=== PATIENT | male | born 1985 | race Two or more races ===

== ENCOUNTER 2021-05-11 13:22 | Emergency (ER) | payer SELFPAY ==
[2021-05-11] MEDS ORDERED: Sodium Chloride 0.9% 10 ML Syringe FLUSH PRN (13:32)
[2021-05-11] MEDS ORDERED: Ondansetron 4 MG/2 ML SDV IVPUSH ONE ×2 (13:33→15:09)
[2021-05-11] MEDS ORDERED: Sodium Chloride 0.9% 1,000 ML IV ONE ×2 (13:33→15:19)
--- NOTE | 2021-05-11 13:33 | EDM.PDOC ---
ED HPI GENERAL MEDICAL PROBLEM - General Chief Complaint: General Stated Complaint: THROWING UP BLOOD Time Seen by Provider: 05/11/21 13:30 Source of Information: Reports: Patient History Limitations: Reports: No Limitations, Language Barrier (patient is from [facility] but does speak lux[place]ish ) - History of Present Illness INITIAL COMMENTS - FREE TEXT/NARRATIVE: Patient comes in the emergency department with complaints of vomiting up blood. Patient does have a history of esophageal varices with surgical intervention in his home country of [facility]. He has not had any medical issues while he is been in [place]. Patient states that he has had 2 surgeries in the past regarding it. He states that it is caused by heavy drinking. Patient still states that he does drink on occasion he drinks about 6 drinks a week. Patient states that he did drink approximately 24 hours ago. Patient states that he started vomiting approximately 12 hours ago. Patient states that he does have black tarry stools along with bright red kal blood when vomiting. He states that he has had greater than 4 episodes of vomiting this morning.Denies any chest pain, shortness of breath, peripheral edema. He states that he is dizzy, lightheaded. He does also have a history of liver cirrhosis and is not currently on any treatment here in [place]. Onset: Sudden Location: Reports: Abdomen Quality: Reports: Throbbing Improves with: Reports: None Worsens with: Reports: None Context: Reports: Other Associated Symptoms: Reports: Other - Related Data Allergies Allergy/AdvReac Type Severity Reaction Status Date / Time No Known Allergies Allergy Verified 05/11/21 15:15 ED ROS GENERAL - Review of Systems Review Of Systems: Comprehensive ROS is negative, except as noted in HPI. Constitutional: Reports: Malaise, Weakness, Fatigue HEENT: Reports: No Symptoms Respiratory: Reports: No Symptoms Cardiovascular: Reports: No Symptoms Endocrine: Reports: No Symptoms GI/Abdominal: Reports: Anorexia, Black Stool, Nausea, Vomiting : Reports: No Symptoms Musculoskeletal: Reports: No Symptoms Skin: Reports: Jaundice, Diaphoresis Neurological: Reports: Dizziness Psychiatric: Reports: No Symptoms Hematologic/Lymphatic: Reports: No Symptoms Immunologic: Reports: No Symptoms ED EXAM, GENERAL - Physical Exam Exam: See Below Exam Limited By: No Limitations General Appearance: Alert, WD/WN, Mild Distress Eye Exam: Bilateral Eye: PERRL, Other (Jaundice appearance sclera ) Head: Atraumatic, Normocephalic Neck: Normal Inspection, Supple, Non-Tender, Full Range of Motion Respiratory/Chest: No Respiratory Distress, Lungs Clear, Normal Breath Sounds, No Accessory Muscle Use, Chest Non-Tender Cardiovascular: Normal Peripheral Pulses, Regular Rate, Rhythm, Tachycardia GI/Abdominal: Normal Bowel Sounds, Soft, Non-Tender Back Exam: Normal Inspection, Full Range of Motion Extremities: Normal Inspection, Normal Range of Motion, Non-Tender Neurological: Alert, Oriented, CN II-XII Intact, Normal Cognition, Normal Gait Psychiatric: Normal Affect, Normal Mood Skin Exam: Jaundice, Pallor Course - Orders/Labs/Meds Orders: Active Orders 24 hr Category Date Time Status Chest wo Cont [CT] Stat Exams 05/11/21 13:37 Ordered Sodium Chloride 0.9% [Normal Saline] 1,000 ml Med 05/11/21 15:19 Ordered IV ONETIME Sodium Chloride 0.9% [Saline Flush] Med 05/11/21 13:32 Active 10 ml FLUSH ASDIRECTED PRN Peripheral IV Insertion Adult [OM.PC] Stat Oth 05/11/21 13:32 Ordered Medication Orders Sodium Chloride (Normal Saline) 1,000 mls @ 1,000 mls/hr IV ONETIME ONE Stop: 05/11/21 16:18 Sodium Chloride (Sodium Chloride 0.9% 10 Ml Syringe) 10 ml FLUSH ASDIRECTED PRN PRN Reason: Keep Vein Open Labs: Laboratory Tests 05/11/21 05/11/21 05/11/21 Range/Units 13:35 13:35 13:35 WBC 8.8 (4.0-10.0) x10^3/uL RBC 3.98 L (4.5-6.0) x10^6/uL Hgb 10.6 L (14.0-18.0) g/dL Hct 31.2 L (40.0-52.0) % MCV 78.4 (78.0-93.0) fL MCH 26.6 (26.0-32.0) pg MCHC 34.0 (32.0-36.0) g/dL RDW Coeff of Monika 17.0 H (10.0-15.0) % Plt Count 138 (130-400) x10^3/uL Neut % (Auto) 72.2 (50.0-80.0) % Lymph % (Auto) 16.8 L (25.0-50.0) % [place] % (Auto) 10.0 (2.0-11.0) % Eos % (Auto) 0.8 (0.0-4.0) % Baso % (Auto) 0.2 (0.2-1.2) % PT (9.9-12.5) SEC INR (2.0-3.5) Sodium 138 (136-145) mmol/L Potassium 4.3 (3.5-5.1) mmol/L Chloride 105 (98-107) mmol/L Carbon Dioxide 25 (21-32) mmol/L Anion Gap 12.3 (5-15) mmol/L BUN 35 H (7-18) mg/dL Creatinine 1.0 (0.70-1.30) mg/dL Est Cr Clr Drug Dosing TNP Estimated GFR (MDRD) > 60 Glucose 115 H (70-99) mg/dL Calcium 8.5 (8.5-10.1) mg/dL Corrected Calcium 8.8 (8.5-10.1) mg/dL Total Bilirubin 3.2 H (0.2-1.0) mg/dL AST 17 (15-37) U/L ALT 16 (16-63) U/L Alkaline Phosphatase 53 (46-116) U/L Troponin I High Sens < 4 (<=76) ng/L Total Protein 6.9 (6.4-8.2) g/dL Albumin 3.6 (3.4-5.0) g/dL Globulin 3.3 Albumin/Globulin Ratio 1.09 Amylase 15 L (25-115) U/L Lipase 61 L (73-393) U/L Blood Type O NEGATIVE Gel Antibody Screen Negative 05/11/21 Range/Units 13:45 WBC (4.0-10.0) x10^3/uL RBC (4.5-6.0) x10^6/uL Hgb (14.0-18.0) g/dL Hct (40.0-52.0) % MCV (78.0-93.0) fL MCH (26.0-32.0) pg MCHC (32.0-36.0) g/dL RDW Coeff of Monika (10.0-15.0) % Plt Count (130-400) x10^3/uL Neut % (Auto) (50.0-80.0) % Lymph % (Auto) (25.0-50.0) % [place] % (Auto) (2.0-11.0) % Eos % (Auto) (0.0-4.0) % Baso % (Auto) (0.2-1.2) % PT 12.5 (9.9-12.5) SEC INR 1.1 L (2.0-3.5) Sodium (136-145) mmol/L Potassium (3.5-5.1) mmol/L Chloride (98-107) mmol/L Carbon Dioxide (21-32) mmol/L Anion Gap (5-15) mmol/L BUN (7-18) mg/dL Creatinine (0.70-1.30) mg/dL Est Cr Clr Drug Dosing Estimated GFR (MDRD) Glucose (70-99) mg/dL Calcium (8.5-10.1) mg/dL Corrected Calcium (8.5-10.1) mg/dL Total Bilirubin (0.2-1.0) mg/dL AST (15-37) U/L ALT (16-63) U/L Alkaline Phosphatase (46-116) U/L Troponin I High Sens (<=76) ng/L Total Protein (6.4-8.2) g/dL Albumin (3.4-5.0) g/dL Globulin Albumin/Globulin Ratio Amylase (25-115) U/L Lipase (73-393) U/L Blood Type Gel Antibody Screen Meds: Medications Generic Name Dose Route Start Last Admin Trade Name Freq PRN Reason Stop Dose Admin Sodium Chloride 1,000 mls @ 1,000 mls/hr 05/11/21 15:19 Normal Saline IV 05/11/21 16:18 ONETIME ONE Sodium Chloride 10 ml 05/11/21 13:32 Sodium Chloride 0.9% 10 Ml Syringe FLUSH ASDIRECTED PRN Keep Vein Open Discontinued Medications Generic Name Dose Route Start Last Admin Trade Name Freq PRN Reason Stop Dose Admin Ceftriaxone Sodium 1 gm 05/11/21 15:23 Ceftriaxone 1 Gm Vial IVPUSH 05/11/21 15:24 ONETIME ONE Sodium Chloride 1,000 mls @ 1,000 mls/hr 05/11/21 13:33 Normal Saline IV 05/11/21 14:32 ONETIME ONE Ondansetron HCl 4 mg 05/11/21 13:33 Ondansetron 4 Mg/2 Ml Sdv IVPUSH 05/11/21 13:34 ONETIME ONE Ondansetron HCl 4 mg 05/11/21 15:09 Ondansetron 4 Mg/2 Ml Sdv IVPUSH 05/11/21 15:10 ONETIME ONE Ondansetron HCl Confirm 05/11/21 15:22 05/11/21 15:15 Ondansetron 4 Mg/2 Ml Sdv Administered 05/11/21 15:23 Not Given Dose 4 mg .ROUTE .STK-MED ONE Pantoprazole Sodium 40 mg 05/11/21 13:44 Pantoprazole 40 Mg Vial IVPUSH 05/11/21 13:45 ONETIME ONE Departure - Departure Time of Disposition: 15:30 Disposition: DC/Tfer to [facility] 02 Condition: Good Clinical Impression: GI bleed Qualifiers: GI bleed type/associated pathology: unspecified gastrointestinal hemorrhage type Qualified Code(s): K92.2 - Gastrointestinal hemorrhage, unspecified - Discharge Information *PRESCRIPTION DRUG MONITORING PROGRAM REVIEWED*: Not Applicable *COPY OF PRESCRIPTION DRUG MONITORING REPORT IN PATIENT UBALDO: Not Applicable Forms: ED Department Discharge, Interfacility Transfer EMTALA - My Orders Last 24 Hours: My Active Orders 05/11/21 13:32 Sodium Chloride 0.9% [Saline Flush] 10 ml FLUSH ASDIRECTED PRN Peripheral IV Insertion Adult [OM.PC] Stat 05/11/21 13:37 Chest wo Cont [CT] Stat 05/11/21 15:19 Sodium Chloride 0.9% [Normal Saline] 1,000 ml IV ONETIME - Assessment/Plan Last 24 Hours: My Active Orders 05/11/21 13:32 Sodium Chloride 0.9% [Saline Flush] 10 ml FLUSH ASDIRECTED PRN Peripheral IV Insertion Adult [OM.PC] Stat 05/11/21 13:37 Chest wo Cont [CT] Stat 05/11/21 15:19 Sodium Chloride 0.9% [Normal Saline] 1,000 ml IV ONETIME Assessment:: 1. vomiting blood 2. GI bleed Plan: 1. Labs completed in the ER. Results reviewed with the patient 2. IV initiated in the emergency department 3. IV fluids provided 2 L fluid given in ER 4. Type and screen completed 5. Protonix 40mg IV given in ER 6. Rocephin 1gm IV given in ER 7. Zofran given in the ER to help with nausea 8. Patient and nursing staff was updated regarding the plan of care 9. Education provided the patient regarding activity, diet, rest, [id number] medication modalities, and follow-up care was provided 10. Patient and family are agreeable to the above plan of care 11. All questions and concerns were addressed with the patient and family prior to discharge
[2021-05-11] MEDS ORDERED: Pantoprazole 40 MG Vial IVPUSH ONE (13:44)
[2021-05-11 14:05] LABS: CHLORIDE,CL 105 mmol/L (98-107); SODIUM,NA 138 mmol/L (136-145)
[2021-05-11 14:26] LABS: ANION GAP 12.3 mmol/L (5-15)
--- NOTE | 2021-05-11 14:56 | CT ---
[id number] CT/CT Chest Abdomen Pelvis WO IV Exam: CT Chest Abdomen Pelvis WO IV Clinical Data: ACUTE BLOOD LOSS COMPARISON: NO PREVIOUS SIMILAR EXAM IS AVAILABLE FINDINGS: The lungs are clear. There is no mediastinal mass or adenopathy There is no mediastinal hemorrhage There is significant splenomegaly The liver, adrenals, aorta, pancreas, and kidneys show no acute abnormalities The pelvis shows no mass, adenopathy, or fluid collection The appendix is not seen IMPRESSION: SIGNIFICANT SPLENOMEGALY HEMATOLOGY CONSULTATION NEEDED CONTRAST CT ABDOMEN PELVIS NEEDED UNDERLYING MESENTERIC VENOUS VASCULAR PATHOLOGY SUSPECTED THERE ARE PREMATURE VENOUS VASCULAR CALCIFICATIONS VERSUS PHLEBOLITHS Alber Li MD 05/11/21 [id number] Thank you for allowing us to participate in the care of your patient.
[2021-05-11] MEDS ORDERED: Ondansetron 4 MG/2 ML SDV ONE (15:22)
[2021-05-11] MEDS ORDERED: cefTRIAXone 1 GM Vial IVPUSH ONE (15:23)
== END 2021-05-11 16:20 | disposition short-term general hospital (02) ==
LOC: VM.ED 13:22
DX: K92.2 Gastrointestinal hemorrhage, unspecified (principal)
CPT/HCPCS: 36415; 71250; 74176; 80053; 82150; 83690; 84484; 85025; 85610; 86850; 86900; 86901; 96374; 96375; 96376; 99284; 99285-25; C9113; J0696; J2405; J7030